=== PATIENT | female | born 1970 | race Asian ===

== ENCOUNTER 2018-12-28 21:16 | Emergency (ER) | payer SELFPAY ==
[~2018-12-28] VITALS: Ht 154.9 cm; Wt 59.0 kg
[2018-12-28] MEDS ORDERED: LISINOPRIL10 MG ORAL (21:30)
--- NOTE | 2018-12-28 21:33 | NUR ---
ED Nurse Note: Pt ambulated to ED from home c/o SOB and "feeling like my blood pressure is too high" pt denies chest pain at this time, 100% spo2 at bedside, pt denies hx asthma. Pt is A&Ox4
[2018-12-28 21:35] VITALS: BP 168/85
[2018-12-28] MEDS ORDERED: LORazepam Inj 2mg/ml 1ml IV ONE (21:45)
--- NOTE | 2018-12-28 21:50 | Emergency Room Report ---
History of Present Illness General Chief Complaint: Dyspnea/Respdistress Source: Patient Present Illness HPI Patient presents with initial complaint on triage reporting shortness of breath however on further discussion patient presents with complaints of palpitation sensation reports that at work today she had a Mild dizziness which resolved quickly while she was in [employer]orm[employer]ism It was mentioned that 1 of the churchgoer's had high blood pressure and had to go to the emergency room after hearing this the patient started having palpitations sensation [place] uneasy And presents to the ER patient reports that she is also going through menopause having hot flashes intermittently denies any shortness of breath at this time denies any pleurisy Allergies: Coded Allergies: No Known Allergies (Unverified , 12/28/18) Patient History Past Medical History: see triage record Last Menstrual Period: unk Reviewed Nursing Documentation: PMH: Agreed; PSxH: Agreed Nursing Documentation-PMH Hx Hypertension: Yes Review of Systems All Other Systems: negative except mentioned in HPI Physical Exam Vital Signs Date Time Temp Pulse Resp B/P (MAP) Pulse Ox O2 Delivery O2 Flow Rate FiO2 12/28/18 21:26 97.0 95 16 168/85 (112) 98 Room Air Sp02 EP Interpretation: reviewed, normal General Appearance: well appearing, no apparent distress Head: normocephalic, atraumatic Eyes: bilateral eye PERRL, bilateral eye EOMI ENT: hearing grossly normal, normal pharynx, TMs + canals normal, uvula midline Neck: full range of motion, supple, no meningismus, no bony tend Respiratory: lungs clear, normal breath sounds, no rhonchi, no respiratory distress, no retraction, no accessory muscle use Cardiovascular #1: normal peripheral pulses, regular rate, rhythm, no edema, no gallop, no JVD, no murmur Gastrointestinal: normal bowel sounds, non tender, soft, no mass, no organomegaly, non-distended, no guarding, no hernia, no pulsatile mass, no rebound Genitourinary: no CVA tenderness Musculoskeletal: normal inspection Neurologic: oriented x3, responsive, ballast regulator operator III-XII nml as tested, motor strength/ tone normal, sensory intact Psychiatric: mood/affect normal Skin: no rash Lymphatic: normal inspection, no adenopathy Medical Decision Making Diagnostic Impression: Primary Impression: Palpitations ER Course Patient is a fairly complex patient with multiple differential to consideration including but not limited to cardiac cardiopulmonary and vascular emergencies Patient's EKG is normal extensive blood work and imaging is obtained which is all negative Patient continues to rest well Remains hemodynamically stable my suspicion for Emergencies such as pulmonary embolism or cardiac pathology is low and patient is stable for close outpatient follow-up Labs Test 12/28/18 22:00 White Blood Count 8.4 K/UL (4.8-10.8) Red Blood Count 5.17 M/UL (4.20-5.40) Hemoglobin 14.8 G/DL (12.0-16.0) Hematocrit 45.3 % (37.0-47.0) Mean Corpuscular Volume 88 FL (80-99) Mean Corpuscular Hemoglobin 28.6 PG (27.0-31.0) Mean Corpuscular Hemoglobin Concent 32.7 G/DL (32.0-36.0) Red Cell Distribution Width 10.8 % (11.6-14.8) Platelet Count 245 K/UL (150-450) Mean Platelet Volume 7.2 FL (6.5-10.1) Neutrophils (%) (Auto) 81.0 % (45.0-75.0) Lymphocytes (%) (Auto) 12.7 % (20.0-45.0) Monocytes (%) (Auto) 4.0 % (1.0-10.0) Eosinophils (%) (Auto) 1.1 % (0.0-3.0) Basophils (%) (Auto) 1.2 % (0.0-2.0) Sodium Level 143 MMOL/L (136-145) Potassium Level 3.8 MMOL/L (3.5-5.1) Chloride Level 106 MMOL/L (98-107) Carbon Dioxide Level 28 MMOL/L (21-32) Anion Gap 9 mmol/L (5-15) Blood Urea Nitrogen 9 mg/dL (7-18) Creatinine 0.7 MG/DL (0.55-1.30) Estimat Glomerular Filtration Rate > 60 mL/min (>60) Glucose Level 104 MG/DL (74-106) Calcium Level 8.7 MG/DL (8.5-10.1) Total Bilirubin 0.3 MG/DL (0.2-1.0) Aspartate Amino Transf (AST/SGOT) 12 U/L (15-37) Alanine Aminotransferase (ALT/SGPT) 12 U/L (12-78) Alkaline Phosphatase 56 U/L (46-116) Total Creatine Kinase 41 U/L (26-308) Creatine Kinase MB < 0.5 NG/ML (0.0-3.6) Creatine Kinase MB Relative Index 1.2 Troponin I 0.000 ng/mL (0.000-0.056) Pro-B-Type Natriuretic Peptide 34 pg/mL (0-125) Total Protein 7.6 G/DL (6.4-8.2) Albumin 3.8 G/DL (3.4-5.0) Globulin 3.8 g/dL Albumin/Globulin Ratio 1.0 (1.0-2.7) Lipase 97 U/L (73-393) EKG Diagnostic Results Rate: normal Rhythm: NSR ST Segments: no acute changes Rhythm Strip Diag. Results EP Interpretation: yes Rate: 70 Rhythm: NSR, no PVC's, no ectopy Chest X-Ray Diagnostic Results Chest X-Ray Diagnostic Results : Chest X-Ray Ordered: Yes # of Views/Limited/Complete: 1 View Indication: Chest Pain EP Interpretation: Yes Interpretation: no consolidation, no effusion, no pneumothorax Impression: No acute disease Electronically Signed by: Cliff Thomas DO Last Vital Signs Date Time Temp Pulse Resp B/P (MAP) Pulse Ox O2 Delivery O2 Flow Rate FiO2 12/28/18 21:35 95 16 Room Air 12/28/18 21:35 97.0 168/85 98 Status: improved Disposition: HOME, SELF-CARE Condition: Improved Additional Instructions: Patient is provided with the discharge instructions notified to follow up with primary doctor in the next 2-3 days otherwise return to the er with any worsening symptoms. Please note that this report is being documented using [employer] technology. This can lead to erroneous entry secondary to incorrect interpretation by the dictating instrument. Cliff Thomas DO Dec 28, 2018 21:50
[2018-12-28 22:22] LABS: BASOPHILS % (AUTO) 1.2 % (0.0-2.0); EOSINOPHILS % (AUTO) 1.1 % (0.0-3.0); HEMATOCRIT 45.3 % (37.0-47.0); HEMOGLOBIN 14.8 G/DL (12.0-16.0); LYMPHOCYTES % (AUTO) 12.7 % (20.0-45.0); MEAN CORPUSCULAR VOLUME 88 FL (80-99); PLATELET COUNT 245 K/UL (150-450); RED BLOOD COUNT 5.17 M/UL (4.20-5.40); RED CELL DISTRIBUTION WIDTH 10.8 % (11.6-14.8); WHITE BLOOD COUNT 8.4 K/UL (4.8-10.8)
[2018-12-28 22:40] LABS: ANION GAP 9 mmol/L (5-15); BLOOD UREA NITROGEN 9 mg/dL (7-18); CALCIUM 8.7 MG/DL (8.5-10.1); CARBON DIOXIDE 28 MMOL/L (21-32); CHLORIDE 106 MMOL/L (98-107); CREATININE 0.7 MG/DL (0.55-1.30); POTASSIUM 3.8 MMOL/L (3.5-5.1); SODIUM 143 MMOL/L (136-145)
[2018-12-28 22:52] LABS: ALANINE AMINOTRANSFERASE 12 U/L (12-78); ALBUMIN 3.8 G/DL (3.4-5.0); ALKALINE PHOSPHATASE 56 U/L (46-116); ASPARTATE AMINO TRANSFERASE 12 U/L (15-37); BILIRUBIN,TOTAL 0.3 MG/DL (0.2-1.0); CKMB < 0.5 NG/ML (0.0-3.6); CREATINE KINASE 41 U/L (26-308)
[2018-12-28 23:15] VITALS: BP 168/85
--- NOTE | 2018-12-28 23:15 | NUR ---
ER DISCHARGE NOTE: Patient is cleared to be discharged per ERMD, pt is aox4, on room air, with stable vital signs. pt was given dc and prescription instructions, pt was able to verbalize understanding, pt id band and iv site removed without complications. pt is able to ambulate with steady gait. pt took all belongings.
--- NOTE | 2018-12-31 11:43 | Cardiology Report ---
APPROVED REPORT EKG Measurement Heart [id number] Normal sinus rhythm Normal ECG
== END 2018-12-28 23:15 | disposition home or self-care (01) ==
LOC: EMR 21:35
DX: R00.2 Palpitations (principal); I10 Essential (primary) hypertension; R07.9 Chest pain, unspecified
CPT/HCPCS: 36415; 71045; 80053; 82550; 82553; 83690; 83880; 84484; 85025; 93005; 96374; 99284; J7040

== ENCOUNTER 2019-01-06 11:29 | Emergency (ER) | payer OTHER ==
[~2019-01-06] VITALS: Ht 154.9 cm; Wt 63.5 kg
[~2019-01-06 11:29] MED LIST: LISINOPRIL10 MG ORAL
--- NOTE | 2019-01-06 11:40 | NUR ---
ED Nurse Note: pt walked in c/o anxiety and drowsiness, pt states she feels like she is "melting", pt states she has been taking lisinopril but has been under a lot of stress and this past week when she took lisinopril she started having more anxiety and drowsiness. pt AA&ox4, gcs=15, skin warm and dry, calm and cooperative, will cont monitor. vss.
[2019-01-06 11:51] VITALS: BP 159/94
--- NOTE | 2019-01-06 12:06 | NUR ---
ED Nurse Note: Pt is in bed resting well with a friend at bedside.
--- NOTE | 2019-01-06 12:27 | NUR ---
ED Nurse Note: Pt spoke to MD.
[2019-01-06 12:31] VITALS: BP 150/94
--- NOTE | 2019-01-06 12:36 | NUR ---
ER DISCHARGE NOTE: Patient is cleared to be discharged per ERMD, pt is aox4, on room air, with stable vital signs. pt was given dc and prescription instructions, pt was able to verbalize understanding, pt id band and iv site removed without complications. pt is able to ambulate with steady gait. pt took all belongings. Pt left with her friend. Pt issue resolved.
--- NOTE | 2019-01-06 13:41 | Emergency Room Report ---
History of Present Illness General Chief Complaint: General Complaint Source: Patient Present Illness HPI Patient presents with complaints of feeling weak Patient reports that she was previously taking her blood pressure medication at nighttime she was having difficulty sleeping with that therefore she recently about 7 days ago Changed to taking the medication in the morning time and since then she has been feeling weak throughout the day and a low energy Also has some sensation of palpitations previously Denies any chest pain denies any headache patient reports that she was under Significant stress previously she has been recently talking to her aging room operator and also having other discussions which have decreased her stress level and improve the way she deals with stress she feels that her blood pressure is lower than normal And now with the blood pressure medication can be going lower than previous Allergies: Coded Allergies: No Known Allergies (Unverified , 12/28/18) Patient History Past Medical History: see triage record Last Menstrual Period: n/a Reviewed Nursing Documentation: PMH: Agreed; PSxH: Agreed Nursing Documentation-PMH Past Medical History: No History, Except For Hx Hypertension: Yes Review of Systems All Other Systems: negative except mentioned in HPI Physical Exam Vital Signs Date Time Temp Pulse Resp B/P (MAP) Pulse Ox O2 Delivery O2 Flow Rate FiO2 01/06/19 11:33 98.1 107 18 159/94 (115) 97 Room Air Sp02 EP Interpretation: reviewed, normal General Appearance: well appearing, no apparent distress Head: normocephalic, atraumatic Eyes: bilateral eye PERRL, bilateral eye EOMI ENT: hearing grossly normal, normal pharynx, TMs + canals normal, uvula midline Neck: full range of motion, supple, no meningismus, no bony tend Respiratory: lungs clear, normal breath sounds, no rhonchi, no respiratory distress, no retraction, no accessory muscle use Cardiovascular #1: normal peripheral pulses, regular rate, rhythm, no edema, no gallop, no JVD, no murmur Gastrointestinal: normal bowel sounds, non tender, soft, no mass, no organomegaly, non-distended, no guarding, no hernia, no pulsatile mass, no rebound Genitourinary: no CVA tenderness Musculoskeletal: normal inspection Neurologic: oriented x3, responsive, dietary service aide III-XII nml as tested, motor strength/ tone normal, sensory intact Psychiatric: mood/affect normal Skin: no rash Lymphatic: normal inspection, no adenopathy Medical Decision Making Diagnostic Impression: Primary Impression: Palpitations Additional Impressions: weakness medication reaction Encounter for generalized patient complaints ER Course Patient is a fairly complex patient with multiple differential to consideration including but not limited to cardiac cardiopulmonary and vascular emergencies Patient has recent blood work in the computer from presentation which was all within normal limits Patient's blood pressure hemodynamic stability is appropriate upon arrival Patient will have blood pressure checked in the morning and afternoon for the next several days to get a baseline level as her Medication could be causing lowering of her blood pressure And will follow closely with primary physician Rhythm Strip Diag. Results EP Interpretation: yes Rate: 77 Rhythm: NSR, no PVC's, no ectopy Last Vital Signs Date Time Temp Pulse Resp B/P (MAP) Pulse Ox O2 Delivery O2 Flow Rate FiO2 01/06/19 12:31 98.6 98 18 150/94 97 Room Air Status: improved Disposition: HOME, SELF-CARE Condition: Improved Referrals: [facility] Patient Instructions: Weakness, [id number], Basics of Medicine Management Additional Instructions: Patient is provided with the discharge instructions notified to follow up with primary doctor in the next 2-3 days otherwise return to the er with any worsening symptoms. Please note that this report is being documented using [employer] technology. This can lead to erroneous entry secondary to incorrect interpretation by the dictating instrument. Cliff Thomas DO Jan 06, 2019 13:41
== END 2019-01-06 13:30 | disposition home or self-care (01) ==
LOC: EMR 12:40
DX: R53.1 Weakness (principal); R00.2 Palpitations; I10 Essential (primary) hypertension; T50.905A Adverse effect of unspecified drugs, medicaments and biological substances, initial encounter; Y92.9 Unspecified place or not applicable
CPT/HCPCS: 99282